=== PATIENT | male | born 1950 | race Caucasian/White ===

== ENCOUNTER 2022-09-23 07:05 | Outpatient (CLI) | payer OTHER | END 2022-09-23 07:06 | disposition home or self-care (01) | LOC: LAB 07:05 | PROVIDERS: ATTEND Internal Medicine | DX: D64.9 Anemia, unspecified (principal); E11.9 Type 2 diabetes mellitus without complications; E78.00 Pure hypercholesterolemia, unspecified; N39.0 Urinary tract infection, site not specified; R80.9 Proteinuria, unspecified; N18.2 Chronic kidney disease, stage 2 (mild) ==